=== PATIENT | male | born 1980 | race Caucasian/White ===

== ENCOUNTER 2023-04-11 22:50 | Emergency (ER) | payer OTHER ==
[2023-04-11] MEDS ORDERED: HYDROcodone/Acetaminophen 5/325 mg Tablet ONE (23:32)
== END 2023-04-11 23:45 ==
LOC: NAV ERS 22:50 → EEVIPCON 22:50 → NAV ERS 23:45
DX: S39.011A Strain of muscle, fascia and tendon of abdomen, initial encounter (principal); K40.90 Unilateral inguinal hernia, without obstruction or gangrene, not specified as recurrent; X58.XXXA Exposure to other specified factors, initial encounter
CPT/HCPCS: 99283

== ENCOUNTER 2023-04-13 13:14 | Emergency (ER) | payer OTHER ==
[~2023-04-13 13:14] MED LIST: Iopamidol 370 76% 100 ML VIAL ONE
[2023-04-13 13:57] LABS: #Basophils 0.1 thou/uL (0.0-0.2); #Lymphocytes 0.8 thou/uL (1.20-3.40); #Monocytes 0.7 thou/uL (0.11-0.59); #Neutrophils 3.6 thou/uL (1.40-6.50); %Basophils 1.5 % (0.0-1.0); %Eosinophils 0.2 % (0.0-10.0); %Lymphocytes 15.4 % (21.0-51.0); %Monocytes 13.1 % (0.0-10.0); %Neutrophils 69.8 % (42.0-75.0); Hematocrit 50.3 % (42.0-52.0); Mean Corpuscular HGB CONC 33.8 g/dL (32.0-36.0); Mean Corpuscular Hemoglobin 30.1 pg (27.0-31.0); Mean Corpuscular Volume 89.2 fl (78.0-98.0); Mean Platelet Volume 8.9 fL (7.4-10.4); Platelet Count 194 10x3/uL (130-400); RBC Distribution Width 11.6 % (11.5-14.5); Red Blood Cell (RBC) Count 5.63 mill/uL (4.70-6.10); White Blood Cell (WBC) Count 5.2 10x3/uL (4.8-10.8)
[2023-04-13] MEDS ORDERED: Morphine 4 MG/ML VIAL ONE (14:02)
[2023-04-13] MEDS ORDERED: Ketorolac Tromethamine 30 MG (1 mL) VIAL ONE (14:02)
[2023-04-13] MEDS ORDERED: Ondansetron PF 4 MG/2 ML Vial ONE (14:02)
[2023-04-13 14:18] LABS: ALT (SGPT) 15 U/L (8-55); AST (SGOT) 13 U/L (5-34); Albumin 4.6 g/dL (3.5-5.0); Alkaline Phosphatase 52 U/L (40-110); Anion Gap 17 mmol/L (10-20); BUN (Urea Nitrogen) 8 mg/dL (8.9-20.6); Bilirubin, Total 0.9 mg/dL (0.2-1.2); Calc. Creatinine Clearance 0 mL/min (70-130); Calcium 9.8 mg/dL (7.8-10.44); Carbon Dioxide 21 mmol/L (22-29); Chloride 105 mmol/L (98-107); Estimated GFR 65; Globulin 2.6 g/dL (2.4-3.5); Glucose 87 mg/dL (70-105); Lipase 29 U/L (8-78); Potassium 3.6 mmol/L (3.5-5.1); Protein, Total 7.2 g/dL (6.0-8.3); Sodium 139 mmol/L (136-145)
[2023-04-13 15:52] LABS: Bacteria/HPF Rare-Few HPF (None Seen); Bilirubin Negative (Negative); Blood, Urine Negative (Negative); Clarity Clear (Clear); Glucose, Urine (Dipstick) Negative (Negative); Ketone, Urine 15 mg/dL (Negative); Leukocyte Negative (Negative); Nitrite Negative (Negative); Protein, Urine (Dipstick) Negative (Neg-Trace); Specific Gravity, Urine 1.015 (1.005-1.030); Urobilinogen 0.2 mg/dL (Less than 2); pH, Urine 7.5 (5.0-9.0)
[2023-04-13 15:53] LABS: Urine Culture Reflex No No
[2023-04-13] MEDS ORDERED: traMADol HCl 50 MG TAB ONE (16:37)
[2023-04-13 17:01] LABS: SARS-CoV-2 NAA Rapid Test Not Detected (NotDetected)
[2023-04-13] MEDS ORDERED: Oseltamivir 75 MG CAP ONE (17:12)
== END 2023-04-13 17:24 ==
LOC: NAV ERS 13:14
DX: K40.90 Unilateral inguinal hernia, without obstruction or gangrene, not specified as recurrent (principal); J10.1 Influenza due to other identified influenza virus with other respiratory manifestations; R10.30 Lower abdominal pain, unspecified; R03.0 Elevated blood-pressure reading, without diagnosis of hypertension; Z87.891 Personal history of nicotine dependence
CPT/HCPCS: 74177; 80053; 81001; 83690; 85025; 96361; 96374; 96375; J1885; J2270; J2405; Q9967